=== PATIENT | male | born 1990 | race African-American/Black ===

== ENCOUNTER 2019-09-10 05:35 | Inpatient (IN) | payer OTHER, SELFPAY ==
[~2019-09-10] VITALS: Ht 182.9 cm; Wt 133.4 kg
[2019-09-10] MEDS: NACL 0.9% 1,000 ML IV SCH ×3 (02:00→16:28)
[2019-09-10] MEDS: BLOOD GLUCOSE MONITORING 1 DEV DEV FS SCH ×3 (02:40→19:43)
--- NOTE | 2019-09-10 05:47 | NUR ---
PT AMBULATED TO BED #10
[2019-09-10] MEDS ORDERED: ONDANSETRON 4 MG/2 ML VIAL IVP ONE (05:50)
[2019-09-10] MEDS ORDERED: NACL 0.9% 1,000 ML IV ONE ×3 (05:50→23:25)
--- NOTE | 2019-09-10 06:26 | NUR ---
29M PRESENTS TO ED WITH C/O GENERALIZED WEAKNESS, NIGHT SWEATS, FEELINGS OF FAINTING, NAUSEA AND VOMITING. PT STATES X 2 WEEKS. UPON ASSESSMENT, PT A/O X 4, GCS 15. DENIES HEADACHE/BLURRY VISION. RR EVEN AND UNLABORED. CBL SOUNDS. DENIES SOB/COUGH. ABDOMEN SOFT AND NONTENDER. NORMOACTIVE BOWEL SOUNDS. DENIES DIARRHEA. ERMD MADE AWARE OF PT STATUS. PT PLACED FOR COMFORT WITH HOB ELEVATED. SAFETY PRECAUTIONS IN PLACE WITH BED LOWEST AND LOCKED, RAILS X 2. PT PLACED IN GOWN. PT PLACED IN CARDIAC MONITORING, WITH SPO2 AND BP MONITORING IN PLACE. PMHX: HTN, ANXIETY NKA
--- NOTE | 2019-09-10 06:26 | NUR ---
XRAY AT BEDSIDE.
--- NOTE | 2019-09-10 06:33 | NUR ---
URINE COLLECTED AND SENT TO LAB.
--- NOTE | 2019-09-10 06:37 | NUR ---
ZOFRAN AND NS BOLUS ADMINISTERED TO RT HAND PIVC. TOLERATED WELL. NADR.
[2019-09-10 06:38] LABS: BASOPHILS # (AUTO) 0.1 K/uL (0.00-0.22); BASOPHILS % (AUTO) 0.7 % (0.0-2.0); HEMATOCRIT 51.8 % (36-52); HEMOGLOBIN 17.3 g/dL (12.0-18.0); LYMPHOCYTES # (AUTO) 1.2 K/uL (2.0-11.5); MEAN CORPUSCULAR HEMOGLOBIN 29 pg (27-31); MEAN CORPUSCULAR HGB CONC 34 g/dL (33-37); MEAN CORPUSCULAR VOLUME 87.2 fL (80-94); MONOCYTES # (AUTO) 0.4 K/uL (0.8-1.0); MONOCYTES % (AUTO) 4.3 % (1.7-9.3); NEUTROPHILS # (AUTO) 7.2 K/uL (1.8-7.7); PLATELET COUNT (AUTO) 313 K/uL (140-450); RED BLOOD CELL COUNT(AUTO) 5.94 MIL/uL (4.20-6.10); RED CELL DISTRIBUTION WIDTH 14.9 % (11.6-13.7); WHITE BLOOD COUNT (AUTO) 8.8 K/uL (4.8-10.8)
[2019-09-10 06:56] LABS: APPEARANCE,URINE CLEAR (CLEAR); BILIRUBIN,URINE NEGATIVE (NEGATIVE); BLOOD, URINE 1+ (NEGATIVE); COLOR,URINE YELLOW (YELLOW); LEUKOCYTE ESTERASE ,URINE NEGATIVE (NEGATIVE); NITRITE, URINE NEGATIVE (NEGATIVE); PH,URINE 5.5 (5.0-9.0); UGLUCOSE 3+ (NEGATIVE)
--- NOTE | 2019-09-10 07:08 | NUR ---
OBTAINED REPORT FROM KACI BOWSER FOR CONTINUITY OF CARE
[2019-09-10 07:15] LABS: WBC,URINE 0-5 /HPF (0-5)
[2019-09-10 08:39] LABS: ALBUMIN 4.4 g/dL (3.4-5.0); ANION GAP 35.4 (8-16); CREATININE 1.8 mg/dL (0.6-1.3); POTASSIUM 4.4 mmol/L (3.5-5.1); TOTAL BILIRUBIN 0.6 mg/dL (0.0-1.0)
[2019-09-10] MEDS ORDERED: INSULIN REGULAR, HUMAN 100 UNIT/ML VIAL SUBQ ONE (08:45)
--- NOTE | 2019-09-10 09:00 | NUR ---
PT RESTING IN BED, SIDE RAIL X1
[2019-09-10] MEDS ORDERED: ACETAMINOPHEN 325 MG TAB PO PRN (10:15)
[2019-09-10] MEDS ORDERED: ONDANSETRON 4 MG/2 ML VIAL IM/IVP PRN (10:15)
[2019-09-10] MEDS ORDERED: DOCUSATE SODIUM 100 MG GELCAP PO PRN (10:15)
[2019-09-10] MEDS ORDERED: HYDROcodone/APAP 7.5/325 MG 1 TAB PO PRN (10:15)
--- NOTE | 2019-09-10 10:49 | NUR ---
COVID SWAB OBTAINED AND TAKEN TO LAB
[2019-09-10 11:25] LABS: PROTHROMBIN TIME 11.2 secs (10.8-13.4)
[2019-09-10 11:28] LABS: FREE T4 (FREE THYROXINE) 1.57 ng/dL (0.76-1.46); MAGNESIUM 2.3 mg/dL (1.8-2.4); PHOSPHORUS 5.7 mg/dL (2.5-4.9); THYROID STIMULATING HORMONE 1.33 uIU/mL (0.34-3.74)
[2019-09-10] MEDS ORDERED: BLOOD GLUCOSE MONITORING 1 DEV DEV FS SCH (11:40)
[2019-09-10] MEDS ORDERED: DEXTROSE 50% 50 ML SYR IVP PRN (11:40)
[2019-09-10] MEDS ORDERED: NACL 0.9% 1,000 ML IV SCH (11:40)
[2019-09-10 11:59] LABS: CHOL/HDL RATIO 9.5 (1-4.5)
--- NOTE | 2019-09-10 12:00 | NUR ---
PT RESTING IN BED, SIDE RAIL X1
[2019-09-10 12:04] LABS: ANION GAP 32.6 (8-16); CARBON DIOXIDE 10.6 mmol/L (21-32); CREATININE 1.6 mg/dL (0.6-1.3); POTASSIUM 4.2 mmol/L (3.5-5.1)
[2019-09-10] MEDS ORDERED: INSULIN REGULAR, HUMAN 100 UNIT/ML VIAL IVP SCH (12:15)
[2019-09-10 12:54] LABS: MAGNESIUM 2.1 mg/dL (1.8-2.4); PHOSPHORUS 4.6 mg/dL (2.5-4.9)
[2019-09-10] MEDS: INSULIN REGULAR, HUMAN 100 UNIT in NACL 0.9% 100 ML IV SCH ×2 (13:05)
--- NOTE | 2019-09-10 14:00 | NUR ---
PT RESTING IN BED, SIDE RAIL X1
--- NOTE | 2019-09-10 15:20 | NUR ---
PT RESTING IN BED, SIDE RAIL X1
--- NOTE | 2019-09-10 16:17 | NUR ---
DR COLLADO AT BEDSIDE
--- NOTE | 2019-09-10 16:36 | NUR ---
PER DR COLLADO TO START D5 1/2NS AT 200 MLS/HR ONCE PARAMETERS ARE MET, PT BEING CLOSELY MONITORED SEE EMAR
[2019-09-10 16:41] LABS: ANION GAP 26.4 (8-16); CARBON DIOXIDE 12.1 mmol/L (21-32); CREATININE 1.5 mg/dL (0.6-1.3); POTASSIUM 3.5 mmol/L (3.5-5.1)
[2019-09-10 16:45] LABS: PHOSPHORUS 1.9 mg/dL (2.5-4.9)
--- NOTE | 2019-09-10 17:57 | NUR ---
PT RESTING IN BED, SIDE RAIL X1
--- NOTE | 2019-09-10 19:24 | NUR ---
REPORT GIVEN TO SHYLA BOWSRE FOR CONTINUITY OF CARE
--- NOTE | 2019-09-10 19:25 | NUR ---
RECEIVED REPORT FROM NIELS YARBROUGH. WILL CONT CARE AT THIS TIME.
[2019-09-10] MEDS: DEXT 5% / NACL 0.45% 1,000 ML IV SCH (19:33)
[2019-09-10] MEDS ORDERED: POTASSIUM CHLORIDE 10 MEQ TABER PO ONE ×2 (19:40→19:53)
--- NOTE | 2019-09-10 19:57 | NUR ---
MD LIEBERMAN ORDERED K DUR 40MEQ PO. ADMINISTERED MED AT THIS TIME PER MD ORDER.
--- NOTE | 2019-09-10 19:58 | NUR ---
RT DOING EKG AT BEDSIDE, PER MD ORDER.
--- NOTE | 2019-09-10 20:05 | NUR ---
ACCU CHECK: 165
[2019-09-10 20:40] LABS: ANION GAP 22.2 (8-16); CARBON DIOXIDE 18.6 mmol/L (21-32); CREATININE 1.4 mg/dL (0.6-1.3); POTASSIUM 3.8 mmol/L (3.5-5.1)
--- NOTE | 2019-09-10 21:05 | NUR ---
accu check: 174
--- NOTE | 2019-09-10 22:27 | NUR ---
ACCU CHECK: 222
--- NOTE | 2019-09-10 23:25 | NUR ---
SPOKE TO MD COLLADO. NEW ORDERS OVER THE PHONE. START 0.9% NS AT RATE OF 175ML/HR. ALSO IF BLOOD GLUCOSE IS < 150, CONTINUE WITH D5/0.45% NS AT RATE OF 250ML/HR. IF BLOOD GLUCOSE IS > 200, STOP THE D5/0.45% NS AND CONTINUE WITH 0.9% NS RATE 175ML/HR. ADDITIONAL ORDER: BLOOD GLUCOSE CHECK Q2H, DC GLUCOSE CHECK Q1H.
[2019-09-11] VITALS (11 sets, daily range): BP systolic 140–167; BP diastolic 95–121
--- NOTE | 2019-09-11 00:29 | NUR ---
accu check 241
--- NOTE | 2019-09-11 01:11 | NUR ---
NEGATIVE COVID RESULTS RECEIVED FROM LAB.
[2019-09-11 01:15] LABS: MAGNESIUM 1.8 mg/dL (1.8-2.4); PHOSPHORUS 1.6 mg/dL (2.5-4.9)
--- NOTE | 2019-09-11 01:55 | NUR ---
Patient will be admitted to care of DR. COLLADO. Admited to ICU. Will go to room 5. Belongings list completed. Report to NIELS FARRIS.
--- NOTE | 2019-09-11 02:00 | NUR ---
RECEIVED PT FROM NIELS MANSFIELD AT 0155 FROM ER DEPT FOR DKA, PT IS ON RM AIR WITH O2 SATURATIONS 98%, LUNG SOUNDS CLEAR, S1 AND S2 HEART SOUNDS HEARD, PULSES PALPABLE UPPER AND LOWER EXTREMITIES, BOWEL SOUNDS ACTIVE, PT FOLLOWS COMMANDS IS ALERT AND ORIENTED, DENIES ANY PAIN OR DISCOMFORT, SKIN IS DRY AND INTACT, IS CURRENTLY RESTING IN BED WATCHING TV, NO SIGNS OF DISTRESS WILL CONTINUE TO MONITOR PT
[2019-09-11] MEDS: BLOOD GLUCOSE MONITORING 1 DEV DEV FS SCH ×10 (02:40→21:52)
[2019-09-11 03:48] LABS: CARBON DIOXIDE 15.5 mmol/L (21-32); CREATININE 1.5 mg/dL (0.6-1.3); POTASSIUM 3.5 mmol/L (3.5-5.1)
[2019-09-11] MEDS: NACL 0.9% 1,000 ML IV SCH ×5 (04:33→16:30)
[2019-09-11] MEDS: DEXT 5% / NACL 0.45% 1,000 ML IV SCH ×4 (04:43→18:10)
--- NOTE | 2019-09-11 04:43 | NUR ---
BS 198; INSULIN DRIP ADJUSTED PER PROTOCOL ; IVF NS CHANGED TO D5 1/2NS ORDERED
--- NOTE | 2019-09-11 06:00 | NUR ---
PT RESTING IN BED, BLOOD SUGAR RECHECKED AND REMAINS BELOW 200, NO SIGNS OF DISTRESS NOTED AT THIS TIME WILL CONTINUE TO MONITOR PT
--- NOTE | 2019-09-11 06:46 | NUR ---
PATIENT HAS BEEN SCREENED AND CATEGORIZED HIGH NUTRITION RISK. PATIENT WILL BE SEEN WITHIN 1-2 DAYS OF ADMISSION. 09/12/19-09/13/19 YASMINE HARO MS, RDN
--- NOTE | 2019-09-11 07:24 | NUR ---
PT ENDORSED TO ALAN BOWSER
[2019-09-11 08:18] LABS: T4 (THYROXINE) 8.9 ug/dL (4.5-12.0)
--- NOTE | 2019-09-11 09:30 | NUR ---
VISIT BY HEAVEN CHAVARRIA . HE IS AWAKE ALERT COOPERATIVE, DENIED PAIN .CONTINUE WITH INSULIN IV DRIP./
--- NOTE | 2019-09-11 09:53 | NUR ---
CALLED DR. BROOKLYN COLLADO [phone] FOREMENTIONED NOT IN AREA REVIEW ABG SAMPLE REPORT RANGE AID TO ATTEMPT AT A LATER TIME
--- NOTE | 2019-09-11 10:07 | NUR ---
CALLED DR. BROOKLYN ZAPIEN MD IN ED [phone] REVIEWED ABG SAMPLE REPORT "IMPROVING" CONTINUE WITH ABG ORDERS
[2019-09-11 10:27] LABS: CREATININE 1.2 mg/dL (0.6-1.3); MAGNESIUM 1.8 mg/dL (1.8-2.4); PHOSPHORUS 1.2 mg/dL (2.5-4.9)
[2019-09-11 10:35] LABS: CARBON DIOXIDE 17.7 mmol/L (21-32); POTASSIUM 3.5 mmol/L (3.5-5.1)
[2019-09-11 10:36] LABS: ANION GAP 20.8 (8-16)
--- NOTE | 2019-09-11 11:00 | NUR ---
BLOOD GLUCOSE 155. CONTINUE WITH INSULIN IV DRIP AND D5 ..45 NS AT 250ML/HR ON ROOM AIR.
[2019-09-11] MEDS: INSULIN REGULAR, HUMAN 100 UNIT in NACL 0.9% 100 ML IV SCH ×2 (11:09)
[2019-09-11 12:27] LABS: ANION GAP 16.9 (8-16); CARBON DIOXIDE 22.3 mmol/L (21-32); CREATININE 1.2 mg/dL (0.6-1.3); POTASSIUM 3.2 mmol/L (3.5-5.1)
[2019-09-11 12:30] LABS: MAGNESIUM 1.7 mg/dL (1.8-2.4); PHOSPHORUS 1.2 mg/dL (2.5-4.9)
--- NOTE | 2019-09-11 12:30 | NUR ---
BLOOD GLUCOSE 191 CONTINUE INSULIN DRIP.
--- NOTE | 2019-09-11 15:30 | NUR ---
BLOOD GLUCOSE 219 CHANGED TO NS 250/HR.
--- NOTE | 2019-09-11 18:12 | NUR ---
BLOOD GLUCOSE 139 CONTINUE INSULIN DRIP , NS IV AT 250/HR.
[2019-09-11 18:19] LABS: MAGNESIUM 1.6 mg/dL (1.8-2.4); PHOSPHORUS 1.2 mg/dL (2.5-4.9)
[2019-09-11 18:24] LABS: POTASSIUM 3.1 mmol/L (3.5-5.1)
[2019-09-11 18:25] LABS: ANION GAP 19.3 (8-16); CARBON DIOXIDE 20.8 mmol/L (21-32)
--- NOTE | 2019-09-11 19:30 | NUR ---
REPORT GIVE TO CORTES NIELS.
--- NOTE | 2019-09-11 19:30 | NUR ---
RECEIVED PATIENT ON BED; AWAKE, ALERT AND ORIENTED ABLE TO MOVE LIMBS FREELY. BREATHING EVEN AND UNLABORE ON ROOM AIR; SO2 99%. CARDIACSCOPE SHOWS ON SINUS RHYTHM HR99/MIN. COMMENCING ON IV INSULIN DRIP AT 12.5 UNITS/HR VIA G I8 IV CANNULA ON RIGHT AC AND ON D5 1/5 250 ML/HR PER DKA PROTOCOL. ABDOMEN IS SOFT AND OBESE; ACTIVE BOWEL SOUNDS; KEPT NPO EXCEPT MEDS ORDERED.
[2019-09-11] MEDS ORDERED: KCL 20 MEQ/WATER INJ PREMIX 200 ML IV ONE ×2 (20:20→20:33)
[2019-09-11] MEDS ORDERED: MAG SULF 2000 MG/WATER PREMIX 50 ML IV ONE (20:20)
--- NOTE | 2019-09-11 20:20 | NUR ---
REFERRED TO DR. COLLADO BY TELEPHONE BECAUSE K LEVEL IS ONLY 3.1 AND MG LEVEL IS 1.6; GOT NEW ORDER; CARRIED OUT.
[2019-09-11] MEDS ORDERED: POTASSIUM CHLORIDE 10 MEQ TABER PO ONE ×2 (20:25→21:47)
[2019-09-11] MEDS: SODIUM PHOS / POTASSIUM PHOS 1 PKT PDR PO SCH (20:25)
--- NOTE | 2019-09-11 21:35 | NUR ---
PT RESTING COMFORTABLY AWAKE SPO2 99% HR 104 f 16 BS CLR/DIM DENIES ANY DISTRESS/SOB AT THIS TIME
[2019-09-11] MEDS: METOPROLOL 25 MG TAB PO SCH (21:50)
[2019-09-11 22:00] LABS: CARBON DIOXIDE 19.1 mmol/L (21-32)
[2019-09-11 22:02] LABS: MAGNESIUM 1.7 mg/dL (1.8-2.4); PHOSPHORUS 1.4 mg/dL (2.5-4.9); POTASSIUM 3.1 mmol/L (3.5-5.1)
--- NOTE | 2019-09-11 22:30 | NUR ---
VOIDING FREELY THRU URINAL TO A CLEAR YELLOW URINE OUTPUT.
[2019-09-12] VITALS (10 sets, daily range): BP systolic 120–161; BP diastolic 54–110
[2019-09-12] MEDS ORDERED: hydrALAZINE 20 MG/ML VIAL IVP PRN (00:10)
[2019-09-12] MEDS: BLOOD GLUCOSE MONITORING 1 DEV DEV FS SCH ×8 (00:30→21:30)
[2019-09-12 01:16] LABS: CREATININE 1.1 mg/dL (0.6-1.3)
[2019-09-12 01:35] LABS: MAGNESIUM 1.9 mg/dL (1.8-2.4); PHOSPHORUS 1.5 mg/dL (2.5-4.9)
[2019-09-12] MEDS: INSULIN REGULAR, HUMAN 100 UNIT in NACL 0.9% 100 ML IV SCH ×4 (03:03→14:14)
--- NOTE | 2019-09-12 03:30 | NUR ---
BLOOD SUGAR TAKEN AND RECORDED Q3 HRS ORDERED; INSULIN DRIP AND IV FLUID ADJUSTED PER PROTOCOL
[2019-09-12] MEDS: NACL 0.9% 1,000 ML IV SCH ×6 (04:00→23:40)
[2019-09-12] MEDS: DEXT 5% / NACL 0.45% 1,000 ML IV SCH ×2 (04:09→20:15)
[2019-09-12 05:58] LABS: BASOPHILS % (AUTO) 0.4 % (0.0-2.0); EOSINOPHILS # (AUTO) 0.2 K/uL (0-0.4); EOSINOPHILS % (AUTO) 2.4 % (0.0-4.0); HEMATOCRIT 41.4 % (36-52); HEMOGLOBIN 14.1 g/dL (12.0-18.0); LYMPHOCYTES # (AUTO) 2.3 K/uL (2.0-11.5); LYMPHOCYTES % (AUTO) 36.8 % (20.5-51.1); MEAN CORPUSCULAR HEMOGLOBIN 29 pg (27-31); MEAN CORPUSCULAR HGB CONC 34 g/dL (33-37); MEAN CORPUSCULAR VOLUME 84.9 fL (80-94); MONOCYTES # (AUTO) 0.4 K/uL (0.8-1.0); MONOCYTES % (AUTO) 6.9 % (1.7-9.3); NEUTROPHILS # (AUTO) 3.4 K/uL (1.8-7.7); NEUTROPHILS % (AUTO) 53.5 % (42.2-75.2); PLATELET COUNT (AUTO) 243 K/uL (140-450); RED BLOOD CELL COUNT(AUTO) 4.87 MIL/uL (4.20-6.10); RED CELL DISTRIBUTION WIDTH 14.7 % (11.6-13.7); WHITE BLOOD COUNT (AUTO) 6.4 K/uL (4.8-10.8)
[2019-09-12 06:35] LABS: CARBON DIOXIDE 20.6 mmol/L (21-32); CREATININE 0.9 mg/dL (0.6-1.3)
[2019-09-12 06:44] LABS: MAGNESIUM 1.7 mg/dL (1.8-2.4); PHOSPHORUS 1.6 mg/dL (2.5-4.9)
[2019-09-12 06:46] LABS: POTASSIUM 2.6 mmol/L (3.5-5.1)
--- NOTE | 2019-09-12 07:30 | NUR ---
RECEIVED REPORT FROM CORTES BOWSER . PT IS AWAKE ALERT ORIENTEDX4 IV FLUID IS ON THE LEFT WRIT . INSULIN INFUS AT 9.3 UNIT /HR SKIN DRY AND WARM DENIED PAIN.
[2019-09-12] MEDS: KCL 20 MEQ/WATER INJ PREMIX 100 ML IV SCH ×2 (07:35→09:35)
[2019-09-12 09:18] LABS: ANION GAP 15.9 (8-16); CARBON DIOXIDE 22.7 mmol/L (21-32); CREATININE 0.9 mg/dL (0.6-1.3)
[2019-09-12] MEDS: MAGNESIUM OXIDE 400 MG TAB PO SCH (09:20)
[2019-09-12] MEDS: SODIUM PHOS / POTASSIUM PHOS 1 PKT PDR PO SCH ×6 (09:20→17:22)
[2019-09-12] MEDS: METOPROLOL 25 MG TAB PO SCH ×2 (09:21→21:00)
[2019-09-12] MEDS: lisinopriL 10 MG TAB PO SCH (09:21)
[2019-09-12 09:22] LABS: MAGNESIUM 1.7 mg/dL (1.8-2.4)
[2019-09-12] MEDS: POTASSIUM CHLORIDE 20% 40 MEQ/15 ML UDC PO SCH ×2 (10:00→12:00)
--- NOTE | 2019-09-12 10:00 | NUR ---
SEEN BY HEAVEN ORDER RECEIVED. PT. AWAKE ALERT NO COMPLAIN.
[2019-09-12 10:09] LABS: POTASSIUM 2.6 mmol/L (3.5-5.1)
[2019-09-12] MEDS ORDERED: POTASSIUM CHLORIDE 20% 40 MEQ/15 ML UDC GT SCH (12:00)
--- NOTE | 2019-09-12 12:00 | NUR ---
SITTING UP IN BED DENIRED PAIN
[2019-09-12 12:26] LABS: ANION GAP 17.3 (8-16); CARBON DIOXIDE 23.9 mmol/L (21-32); CREATININE 0.9 mg/dL (0.6-1.3); POTASSIUM 3.2 mmol/L (3.5-5.1)
[2019-09-12 12:52] LABS: MAGNESIUM 1.6 mg/dL (1.8-2.4); PHOSPHORUS 2.4 mg/dL (2.5-4.9)
--- NOTE | 2019-09-12 14:00 | NUR ---
PICC LINE INSERTED BY TERESA . MIREYA X-RAY ORDERED.
--- NOTE | 2019-09-12 15:00 | NUR ---
PICC LINE OK TO USE.
--- NOTE | 2019-09-12 18:30 | NUR ---
BLOOD GLUCOSE 213 CHANGED TO NS IV .
--- NOTE | 2019-09-12 19:15 | NUR ---
RECEIVED PATIENT ON BED WATCHING TELEVISION; AWAKE, ALERT AND ORIENTED; ABLE TO MOVE LIMBS FREELY. BREATHING EVEN AND UNLABORED, ON ROOM AIR. SO2 100%. IVF IN PROGRESS VIA PICC LINE TO RIGHT UPPER ARM FOLLOWS NORMAL SALINE AT 250 ML/HR AND ON INSULIN DRIP AT 9.3 UNITS/HR; PATENT AND INTACT. ABDOMEN IS SOFT, OBESE, NON TENDER; BOWEL SOUNDS ACTIVE.
--- NOTE | 2019-09-12 19:15 | NUR ---
REPORT GIVE TO CORTES NIELS.
--- NOTE | 2019-09-12 19:41 | NUR ---
PT IS SITTING IN BED PLAYING ON PHONE W/ NO S/S OF ANY DISTRESS AT THIS TIME SPO2 99%
[2019-09-12 20:17] LABS: MAGNESIUM 1.6 mg/dL (1.8-2.4)
[2019-09-12 20:18] LABS: PHOSPHORUS 2.7 mg/dL (2.5-4.9)
[2019-09-12 20:19] LABS: ANION GAP 13.6 (8-16)
[2019-09-12 20:20] LABS: CREATININE 0.9 mg/dL (0.6-1.3)
[2019-09-12 20:22] LABS: POTASSIUM 2.6 mmol/L (3.5-5.1)
[2019-09-12] MEDS ORDERED: POTASSIUM CHLORIDE 10 MEQ TABER PO ONE ×2 (20:35→23:07)
[2019-09-12] MEDS ORDERED: MAG SULF 2000 MG/WATER PREMIX 50 ML IV ONE ×2 (20:35→21:02)
[2019-09-12] MEDS ORDERED: KCL 20 MEQ/WATER INJ PREMIX 200 ML IV ONE ×2 (20:35→21:00)
--- NOTE | 2019-09-12 23:10 | NUR ---
PATIENT WENT INTO SINUS TACHYCARDIA WITH HR 169-170/MIN. PATIENT IS JUST RESTING IN THE BED AND HE SAID HE'S OKAY AND DENIES ANY CHEST PAIN; REFERRED TO DR. COLLADO BY TELEPHONE AND HE ORDERED TO GIVE PATIENT CARDIZEM 30 MG PO NOW AND TO DO A 12 LEAD EKG; CARRIED OUT.
[2019-09-12] MEDS ORDERED: DILTIAZEM 30 MG TAB ONE (23:42)
[2019-09-13] VITALS (14 sets, daily range): BP systolic 112–139; BP diastolic 59–92
[2019-09-13] MEDS: INSULIN REGULAR, HUMAN 100 UNIT in NACL 0.9% 100 ML IV SCH ×2 (00:52)
[2019-09-13] MEDS: BLOOD GLUCOSE MONITORING 1 DEV DEV FS SCH ×6 (00:56→20:05)
--- NOTE | 2019-09-13 01:00 | NUR ---
PATIENT IS SLEEPING QUIETLY; HR IS CONTROLLED AROUND 102/MIN.
--- NOTE | 2019-09-13 02:56 | NUR ---
PATIENT IS AWAKE, LOOKS COMFORTABLE BUT NOTED ON SURGICAL ASST HE'S HAVING SUSTAINED V-TACH; DENIES ANY CHEST PAIN NOR DIZZINESS; PAGED DR. COLLADO IMMEDIATELY WITH NEW ORDERS. ER MD DR. CABA WAS CALLED IMMEDIATELY; IN AND WITH ORDERS TO GIVE VERSED 2 MG IV STAT' CARDIOVERTED THE PATIENT AT 30 JOULES; STILL IN V TACH. ADENOSINE 6 MG IVP GIVEN AND ALSO CARDIZEM 20 MG IV GIVEN; PATIENT WENT INTO A FIB WITH RVR FOR FEW SEC THEN REVERTED INTO SINUS RHYTHM LATER.
[2019-09-13] MEDS ORDERED: MIDAZOLAM 2 MG/2 ML VIAL ONE (03:07)
[2019-09-13] MEDS ORDERED: MIDAZOLAM 2 MG/2 ML VIAL IV ONE (03:09)
--- NOTE | 2019-09-13 03:10 | NUR ---
INSULIN HOLD ORDERED BY DR. COLLADO. MARY DONE IT'S 149.
[2019-09-13] MEDS ORDERED: DILTIAZEM 25 MG/5 ML VIAL IVP ONE ×2 (03:11→03:14)
[2019-09-13] MEDS ORDERED: ADENOSINE 6 MG/2 ML VIAL IVP ONE (03:13)
--- NOTE | 2019-09-13 03:30 | NUR ---
PAGED DR. DELROY CORRIGAN FOR URGENT CARDIO CONSULTATION ORDERED BY DR COLLADO; LEFT MESSAGE ON HIS CELLPHONE.
[2019-09-13] MEDS: NACL 0.9% 1,000 ML IV SCH ×5 (03:40→22:50)
[2019-09-13 04:04] LABS: ALBUMIN 2.8 g/dL (3.4-5.0); ANION GAP 12.2 (8-16); CARBON DIOXIDE 24.9 mmol/L (21-32); CREATININE 0.8 mg/dL (0.6-1.3); POTASSIUM 3.1 mmol/L (3.5-5.1); TOTAL BILIRUBIN 0.5 mg/dL (0.0-1.0)
--- NOTE | 2019-09-13 04:31 | NUR ---
CALLED TO BEDSIDE FOR CONSCIOUS SEDATION
[2019-09-13 05:04] LABS: BASOPHILS # (AUTO) 0.1 K/uL (0.00-0.22); BASOPHILS % (AUTO) 1.2 % (0.0-2.0); EOSINOPHILS # (AUTO) 0.1 K/uL (0-0.4); EOSINOPHILS % (AUTO) 2.4 % (0.0-4.0); HEMATOCRIT 40.5 % (36-52); HEMOGLOBIN 13.8 g/dL (12.0-18.0); LYMPHOCYTES # (AUTO) 2.3 K/uL (2.0-11.5); LYMPHOCYTES % (AUTO) 49.4 % (20.5-51.1); MEAN CORPUSCULAR HEMOGLOBIN 29 pg (27-31); MEAN CORPUSCULAR HGB CONC 34 g/dL (33-37); MEAN CORPUSCULAR VOLUME 84.7 fL (80-94); MONOCYTES # (AUTO) 0.4 K/uL (0.8-1.0); NEUTROPHILS # (AUTO) 1.8 K/uL (1.8-7.7); PLATELET COUNT (AUTO) 220 K/uL (140-450); RED BLOOD CELL COUNT(AUTO) 4.79 MIL/uL (4.20-6.10); RED CELL DISTRIBUTION WIDTH 15.1 % (11.6-13.7); WHITE BLOOD COUNT (AUTO) 4.7 K/uL (4.8-10.8)
[2019-09-13] MEDS ORDERED: KCL 20 MEQ/WATER INJ PREMIX 200 ML IV ONE (06:20)
[2019-09-13] MEDS ORDERED: INSULIN LANTUS 100 UNITS/ML 10 ML VIAL SUBQ SCH (06:20)
[2019-09-13] MEDS ORDERED: DEXTROSE 50% 50 ML SYR IVP PRN (09:15)
[2019-09-13] MEDS ORDERED: MAG SULF 2000 MG/WATER PREMIX 50 ML IV SCH (10:00)
[2019-09-13] MEDS: MAGNESIUM OXIDE 400 MG TAB PO SCH (10:06)
[2019-09-13] MEDS: METOPROLOL 25 MG TAB PO SCH ×2 (10:07→20:05)
[2019-09-13] MEDS: lisinopriL 10 MG TAB PO SCH (10:08)
[2019-09-13] MEDS: SODIUM PHOS / POTASSIUM PHOS 1 PKT PDR PO SCH ×3 (10:08→16:55)
[2019-09-13] MEDS: INSULIN LISPRO SLIDING SCALE 100 UNITS/ML VIAL SUBQ PRN ×3 (11:58→20:09)
[2019-09-13] MEDS ORDERED: POTASSIUM CHLORIDE 40 MEQ, LIDOCAINE MPF 1% 25 MG in NACL 0.9% 250 ML IV SCH (13:00)
--- NOTE | 2019-09-13 13:08 | NUR ---
ACCESSIBILITY LIFT TECHNICIAN NOTE: Patient's Orientation Unable To Assess Information Provided By CIRILO GREGORY - MOTHER Comments SW WAS UNABLE TO MEET PATIENT AT BEDSIDE. Call Center Assistant, Realtionship and Phone Number CIRILO DOBBINS [phone] Healthcare Power of Neurodiagnostic Technician No Does Patient Have a POLST No Identifying Problems No Social Work Triggers Is A Social Work Consult Needed No Mandate Report Filed No Explanation Of Identifying Problems PATIENT IS A 29-YEAR-OLD MALE ADMITTED FOR DKA. PATIENT HAS NO PMHX. Admitted From Home Pre-Admission Level Of Functioning Status Independent/Ambulatory Prior Resources/Services Used In Last 12 Months No Prior Resources Used Prior DME No Prior DME Used Living Situation Lives Alone Other Living Situation/Comment PER MOTHER, PATIENT LIVES AT [address] [place] [address] AND LIVES ALONE. Patient Had Caregiver No Home Support No Caregiver Issues Financial Issues No Known Financial Issue Referral To The Financial Counselor Needed No Factors/Needs No D/C Needs Identified Pt/Rep Participated In Discharge Plan Yes Patient/Family Agress With Discharge Plan Yes Discharge Plan Comments TENTATIVE DISCHARGE PLAN IS FOR PATIENT TO RETURN HOME. DC Plan Status Initiated
--- NOTE | 2019-09-13 13:24 | NUR ---
09/13/2019 RD INITIAL ASSESSMENT COMPLETED PLEASE REFER TO NUTRITION ASSESSMENT UNDER CARE ACTIVITY FOR ESTIMATED NUTRITIONAL NEEDS. CONTINUE [address] [facility] [address] TO MONITOR PO INTAKE, DIET TOLERANCE AND ASSESS APPROPRIATENESS OF PATIENT EDUCATION RD TO FOLLOW-UP IN 3-5 DAYS PATIENT IS MODERATE RISK. LETTY MCDONNELL, RD
[2019-09-13 17:04] LABS: ANION GAP 15.1 (8-16); CARBON DIOXIDE 22.3 mmol/L (21-32); CREATININE 0.7 mg/dL (0.6-1.3); POTASSIUM 4.4 mmol/L (3.5-5.1)
--- NOTE | 2019-09-13 19:20 | NUR ---
RECEIVED REPORT FROM ALAN RN, PT RESTING IN BED, PT ALERT AND ORIENTED FOLLOWS COMMANDS, EYES PERRLA 3MM, LUNG SOUNDS CLEAR, S1 AND S2 HEART SOUNDS HEARD, PULSES PALPABLE UPPER AND LOWER EXTREMITIES, BOWEL SOUNDS ACTIVE, PT ON RM AIR, PT HAS DORENE PICC RECEIVING NORMAL SALINE, PT DENIES PAIN, SAFETY PROTOCOLS IN PLACE WILL CONTINUE TO MONITOR PT
--- NOTE | 2019-09-13 20:05 | NUR ---
PT MEDS GIVEN AND PT EDUCATED ON MEDICATION USES, AND PROPER ADMINISTRATION OF INSULIN, PT VERBALIZES UNDERSTANDING WILL REASSESS LATER.
[2019-09-13] MEDS: INSULIN LANTUS 100 UNITS/ML 10 ML VIAL SUBQ SCH (22:50)
[2019-09-13] MEDS: metFORMIN 500 MG TAB PO SCH (22:50)
[2019-09-13] MEDS ORDERED: DILTIAZEM 30 MG TAB PO ONE (23:40)
[2019-09-14] VITALS (12 sets, daily range): BP systolic 13–164; BP diastolic 69–98
--- NOTE | 2019-09-14 00:30 | NUR ---
PT RESTING IN BED NO SIGNS OF DISTRESS OBSERVED WILL CONTINUE TO MONITOR PT
[2019-09-14] MEDS: NACL 0.9% 1,000 ML IV SCH ×3 (04:00→19:28)
--- NOTE | 2019-09-14 05:30 | NUR ---
REASSESSED PT KNOWLEDGE VERBALLY OF BLOOD SUGAR CHECK AND ADMINISTER INSULIN PT ABLE TO VERBALIZE UNDERSTANDING
[2019-09-14 06:06] LABS: BASOPHILS % (AUTO) 0.4 % (0.0-2.0); EOSINOPHILS # (AUTO) 0.2 K/uL (0-0.4); EOSINOPHILS % (AUTO) 4.1 % (0.0-4.0); HEMATOCRIT 36.9 % (36-52); HEMOGLOBIN 12.4 g/dL (12.0-18.0); LYMPHOCYTES # (AUTO) 2.3 K/uL (2.0-11.5); LYMPHOCYTES % (AUTO) 55.6 % (20.5-51.1); MEAN CORPUSCULAR HEMOGLOBIN 29 pg (27-31); MEAN CORPUSCULAR HGB CONC 34 g/dL (33-37); MONOCYTES # (AUTO) 0.3 K/uL (0.8-1.0); MONOCYTES % (AUTO) 6.2 % (1.7-9.3); NEUTROPHILS # (AUTO) 1.4 K/uL (1.8-7.7); NEUTROPHILS % (AUTO) 33.7 % (42.2-75.2); PLATELET COUNT (AUTO) 192 K/uL (140-450); RED CELL DISTRIBUTION WIDTH 14.9 % (11.6-13.7); WHITE BLOOD COUNT (AUTO) 4.2 K/uL (4.8-10.8)
[2019-09-14 06:18] LABS: ANION GAP 13.9 (8-16); CARBON DIOXIDE 24.5 mmol/L (21-32); CREATININE 0.8 mg/dL (0.6-1.3); POTASSIUM 3.4 mmol/L (3.5-5.1)
[2019-09-14 06:23] LABS: MAGNESIUM 1.8 mg/dL (1.8-2.4); PHOSPHORUS 2.9 mg/dL (2.5-4.9)
[2019-09-14] MEDS: INSULIN LISPRO SLIDING SCALE 100 UNITS/ML VIAL SUBQ PRN ×4 (06:54→22:09)
[2019-09-14] MEDS: BLOOD GLUCOSE MONITORING 1 DEV DEV FS SCH ×4 (06:54→21:52)
[2019-09-14] MEDS: metFORMIN 500 MG TAB PO SCH ×2 (08:32→17:48)
[2019-09-14] MEDS ORDERED: MAG SULF 2000 MG/WATER PREMIX 50 ML IV SCH (09:00)
[2019-09-14] MEDS: METOPROLOL 25 MG TAB PO SCH ×2 (09:11→21:53)
[2019-09-14] MEDS: lisinopriL 10 MG TAB PO SCH (09:12)
[2019-09-14] MEDS: MAGNESIUM OXIDE 400 MG TAB PO SCH (09:12)
[2019-09-14] MEDS ORDERED: POTASSIUM CHLORIDE 40 MEQ, LIDOCAINE MPF 1% 25 MG in NACL 0.9% 250 ML IV SCH (11:00)
[2019-09-14 14:08] LABS: ANION GAP 12.6 (8-16); CARBON DIOXIDE 25.3 mmol/L (21-32); CREATININE 0.7 mg/dL (0.6-1.3); POTASSIUM 3.9 mmol/L (3.5-5.1)
--- NOTE | 2019-09-14 18:22 | NUR ---
REPORT CALLED TO NIELS Briseno ON TELEMETRY FLOOR. PATIENT MOVED TO TELEMETRY FLOOR VIA WHEELCHAIR WITH BELONGINGS AND MEAL TRAY.
--- NOTE | 2019-09-14 18:26 | NUR ---
RECIEVED REPORT FROM ICU NURSE MIKI. PT RESTING IN BED. ABLE TO MAKE NEEDS KNOWN. RESPIRATIONS EVEN AND UNLABORED WITH NO SOB OR RESPIRATORY DISTRESS. SKIN WARM AND DRY TO TOUCH. SAFETY MEASURES IN PLACE. WILL CONTINUE TO MONITOR
--- NOTE | 2019-09-14 19:20 | NUR ---
ENDORSED AT BEDSIDE TO NIGHTSHIFT NURSE FOR CONTINUITY OF CARE. PT IS STABLE
--- NOTE | 2019-09-14 19:30 | NUR ---
RECEIVED CONTINUITY OF CARE FROM AM NURSE. PATIENT IS ALERT AND ORIENTED TO PERSON, PLACE, TIME, AND DATE. SKIN IS WARM, DRY, INTACT. PATIENT IS ON ROOM AIR, SATURATING AT 99%. RESPIRATION IS EVEN AND UNLABORED. ACTIVE BOWEL SOUNDS THROUGH. SIGNS OF HYPOGLYCEMIA NOTED. DISCUSSED PLAN OF CARE WITH PATIENT. PATIENT VERBALIZED UNDERSTANDING. SAFETY PRECAUTIONS IN PLACE. CALL LIGHT WITHIN REACH. WILL CONTINUE TO MONITOR
[2019-09-14] MEDS ORDERED: LANTUS SUBQ (19:50)
[2019-09-14] MEDS ORDERED: METO25TA PO (19:50)
[2019-09-14] MEDS ORDERED: LISI10TA11 PO (19:50)
[2019-09-14] MEDS: INSULIN LANTUS 100 UNITS/ML 10 ML VIAL SUBQ SCH (21:00)
--- NOTE | 2019-09-14 21:15 | NUR ---
PATIENT NOTIFIED OF DISCHARGE ORDERS. PATIENT WILL NOTIFY FAMILY.
--- NOTE | 2019-09-14 23:10 | NUR ---
BLOOD PRESSURE REASSESSED AND RECEIVED 135/70, PULSE IS 90. PATIENT IS IN STABLE CONDITION. PICC LINE REMOVED WITH CHARGE AT BEDSIDE. WRIST BAND REMOVED. BELONGINGS GIVEN TO PATIENT. PATIENT LEFT HOSPITAL BY PRIVATE VEHICLE
== END 2019-09-14 23:10 | disposition home or self-care (01) | DRG 637 ==
LOC: MED 05:35 → EEVIPCON 05:35 → MIC 10:14 → MMU 09-14 18:15
PROVIDERS: ADMIT Family Medicine; ATTEND Family Medicine
PROC: 02HV33Z Insertion of Infusion Device into Superior Vena Cava, Percutaneous Approach (ICD-10-PCS; principal; 2019-09-10)
DX: E11.10 Type 2 diabetes mellitus with ketoacidosis without coma (principal); N17.0 Acute kidney failure with tubular necrosis; E87.1 Hypo-osmolality and hyponatremia; E83.39 Other disorders of phosphorus metabolism; E78.5 Hyperlipidemia, unspecified; E11.9 Type 2 diabetes mellitus without complications; E78.2 Mixed hyperlipidemia; E83.42 Hypomagnesemia; E87.6 Hypokalemia; F20.9 Schizophrenia, unspecified; Z20.828 Contact with and (suspected) exposure to other viral communicable diseases; Z79.4 Long term (current) use of insulin; K30 Functional dyspepsia; E66.9 Obesity, unspecified; I34.0 Nonrheumatic mitral (valve) insufficiency
CPT/HCPCS: 36415; 36600; 71045; 80048; 80053; 81001; 82150; 82803; 82948; 83036; 83690; 83735; 83880; 84100; 84436; 84439; 84443; 84479; 84484; 85025; 85610; 85730; 87081; 93005; 96361; 96372; 96374; 96375; 96376; 99285; C1751; J0360; J1644; J1815; J2001; J2250; J2405; J3475; J3480; J3490; J7030; Q0092; U0003-CS